=== PATIENT | male | born 1975 | race American Indian/Alaskan Native ===

== ENCOUNTER 2017-02-20 21:54 | Emergency (ER) | payer OTHER ==
[2017-02-20] MEDS ORDERED: TYLENOL PO ONE (22:22)
[2017-02-20 22:44] LABS: Hematocrit 42.9 % (35.5-45.6); Mean Corpuscular HGB Conc 33 % (32-34); Mean Corpuscular Hemoglobin 28 pg (28-32); Mean Corpuscular Volume 87 fl (84-94); Platelet Count 186 K/mm3 (140-440); Red Blood Count 4.93 M/mm3 (3.65-5.03); Red Cell Distribution Width 13.1 % (13.2-15.2); White Blood Count 11.2 K/mm3 (4.5-11.0)
[2017-02-20 23:03] LABS: Anion Gap 15 mmol/L; BUN/Creatinine Ratio 17.14; Blood Urea Nitrogen 12 mg/dL (9-20); Carbon Dioxide 27 mmol/L (22-30); Chloride 103.5 mmol/L (98-107); Glucose 115 mg/dL (75-100); Potassium 4.8 mmol/L (3.6-5.0); Sodium 141 mmol/L (137-145)
[2017-02-20 23:43] LABS: Basophils % (Manual) 0 % (0.0-1.8); Blastocytes % (Manual) 0 %
[2017-02-20 23:44] LABS: Diff Status Complete; Platelet Estimate Consistent w Auto; RBC Morphology Normal
[2017-02-21 09:26] LABS: Bilirubin,Urine NEG (Negative); Blood,Urine MOD (Negative); Ketones,Urine NEG (Negative); Leukocyte Esterase,Urine NEG (Negative); Mucus,Urine FEW /HPF; Nitrite,Urine NEG (Negative); Urobilinogen,Urine < 2.0 mg/dL (<2.0)
[2017-02-21] MEDS ORDERED: NACL 0.9% 1000 ML 1,000 ML IV ONE (09:52)
[2017-02-21] MEDS ORDERED: MORPHINE IV ONE (09:53)
--- NOTE | 2017-02-21 10:57 | Cat Scan Report ---
CT abdomen and pelvis without contrast: Transverse images are obtained from the lower chest to the ischium with coronal and sagittal 2-D reformatted images. The visualized lung bases are unremarkable. There is an 8.6 mm hypodensity in the right hepatic lobe with a relatively low attenuation. There is mild fluid distention of the stomach. The abdominal organs are not otherwise remarkable. The retroperitoneal structures are also unremarkable. No evidence renal calculus, renal mass, or hydronephrosis identified. The abdominal aorta is normal in size and contour. There is no adenopathy noted. The unopacified bowel and mesentery appear unremarkable. The appendix is visualized. There are significant degenerative changes involving the L5-S1 interspace with bony proliferation and degenerative disc. Impressions: Small liver cyst. Degenerative L5-S1 changes. No acute abdominal findings.
[2017-02-21] MEDS ORDERED: HCTZ PO ONE (11:22)
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
[2017-02-21 12:00] VITALS: BP 172/98
== END 2017-02-21 12:04 | disposition home or self-care (01) ==
LOC: ED 21:54
DX: M54.5 Low back pain (principal); I10 Essential (primary) hypertension; F17.200 Nicotine dependence, unspecified, uncomplicated
CPT/HCPCS: 36415; 74176; 80048; 81001; 82550; 85007; 85025; 96361; 96374; 99284; J2270; J7030